=== PATIENT | male | born 1980 | race African-American/Black ===

== ENCOUNTER 2020-03-02 02:46 | Emergency (ER) | payer SELFPAY ==
[~2020-03-02] VITALS: Ht 180.3 cm; Wt 106.6 kg
[2020-03-02 02:50] VITALS: BP_SYST 151
--- NOTE | 2020-03-02 02:50 | NUR ---
Patient to ER bed 6 to gown for evaluation. Side rails up. Report given to ASHU.
--- NOTE | 2020-03-02 02:55 | NUR ---
PT AAO AND AMBULATORY C/O WORSENING MIGRAINE HEADACHE SINCE YESTERDAY. PT HAS ATTEMPTED TO TREAT HIS HEADACHE WITH HOME MEASURES AND HAS BEEN UNSUCCESSFUL WITH OTC MEDICATION. PT REPORTS SENSITIVITY TO LIGHT AND 10/10 PAIN SCALE.
--- NOTE | 2020-03-02 03:10 | NUR ---
ER DR. QUILES AT THE BEDSIDE EVALUATING PT
[2020-03-02] MEDS ORDERED: NACL 0.9% 1,000 ML IV ONE (03:23)
[2020-03-02] MEDS ORDERED: DIPHENHYDRAMINE INJ 50 MG/ML VIAL IVP ONE (03:30)
[2020-03-02] MEDS ORDERED: METOCLOPRAMIDE HCL 10 MG/2 ML VIAL IVP ONE (03:30)
[2020-03-02] MEDS ORDERED: KETOROLAC TROMETHAMINE 30 MG VIAL IVP ONE (03:30)
--- NOTE | 2020-03-02 03:30 | NUR ---
# 18 gauge angiocath placed to LAC. Use of asceptic technique. Opsite placed over site. Blood return noted. Blood for lab drawn from site. Flushed with 10 cc of normal saline. No evidence of infiltration noted. Patient tolerated well.
[2020-03-02 03:51] LABS: BASOPHILS # (AUTO) 0.1 K/uL (0.0-0.2); BASOPHILS % (AUTO) 1.4 % (0.0-2.0); EOSINOPHILS # (AUTO) 0.1 K/uL (0.0-0.4); EOSINOPHILS % (AUTO) 1.6 % (0.0-4.0); HEMATOCRIT 41.7 % (36-54); LYMPHOCYTES # (AUTO) 1.4 K/uL (1.0-5.5); LYMPHOCYTES % (AUTO) 17.6 % (20.5-51.5); MEAN CORPUSCULAR HEMOGLOBIN 28 pg (27-31); MEAN CORPUSCULAR HGB CONC 34 % (32-36); MEAN CORPUSCULAR VOLUME 83 fL (79.0-98.0); MONOCYTES # (AUTO) 0.3 K/uL (0.0-1.0); MONOCYTES % (AUTO) 4.5 % (1.7-9.3); NEUTROPHILS # (AUTO) 5.7 K/uL (1.8-7.7); NEUTROPHILS % (AUTO) 74.9 % (40.0-70.0); PLATELET COUNT (AUTO) 288 K/uL (130-430); RED BLOOD CELL COUNT(AUTO) 5.02 MIL/uL (4.2-6.2); RED CELL DISTRIBUTION WIDTH 13.1 % (9.0-15.0); WHITE BLOOD COUNT (AUTO) 7.7 K/uL (4.8-10.8)
[2020-03-02 03:59] LABS: CALCIUM 8.6 mg/dL (8.4-11.0); CREATININE 1.01 mg/dL (0.55-1.30); POTASSIUM 3.6 mmol/L (3.5-5.1)
[2020-03-02] MEDS ORDERED: fentaNYL CITRATE/PF 100 MCG/2 ML AMP IVP ONE (04:00)
[2020-03-02 04:03] LABS: ALBUMIN 3.8 g/dL (3.4-4.8); PROTHROMBIN TIME 10.4 SECS (9.5-12.5); TOTAL BILIRUBIN 0.3 mg/dL (0.0-1.0)
--- NOTE | 2020-03-02 04:15 | NUR ---
Patient transported to radiology via AMBULATION, accompanied by STAFF.
[2020-03-02 05:15] VITALS: BP_SYST 151
--- NOTE | 2020-03-02 05:18 | NUR ---
Patient given written and verbal discharge instructions and verbalizes understanding. ER MD discussed with patient the results and treatment provided. Patient in stable condition. ID arm band removed. IV catheter removed intact and dressing applied, no active bleeding. Rx of FIORICET given. Patient educated on pain management and to follow up with PMD. Pain Scale 0/10. Opportunity for questions provided and answered. Medication side effect fact sheet provided.
== END 2020-03-02 05:15 | disposition home or self-care (01) ==
LOC: SED 02:46
DX: R51.9 Headache, unspecified (principal)
CPT/HCPCS: 36415; 70450; 80053; 85025; 85610; 85730; 96374; 96375; 99284; J1200; J1885; J2765; J3010; J7030

== ENCOUNTER 2022-08-25 09:25 | Emergency (ER) | payer SELFPAY ==
[~2022-08-25] VITALS: Ht 177.8 cm; Wt 117.9 kg
[2022-08-25 09:30] VITALS: BP_SYST 155
--- NOTE | 2022-08-25 09:41 | NUR ---
PT BIB SELF FROM HOME WITH C/O FEVERS AND CHILLS X1 WK. PT STATES HE HAD BLOOD IN HIS URINE LAST NIGHT AND HAS PAIN WHEN URINATING. PT STATES HIS PAIN IS 10/10 IN THE LLQ. HX - N/A. 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 SAFETY PRECAUTIONS AND COMFORT MEASURES IN PLACE. PENDING MD BOYKIN AND ORDERS.
--- NOTE | 2022-08-25 09:44 | NUR ---
DR. CODY AT BEDSIDE EXAMINING THE PT.
--- NOTE | 2022-08-25 09:46 | NUR ---
URINE SENT TO LAB.
[2022-08-25] MEDS ORDERED: KETOROLAC TROMETHAMINE 60 MG/2 ML VIAL IM ONE (10:00)
[2022-08-25 10:05] LABS: ANION GAP 8 (5-15); CALCIUM 8.8 mg/dL (8.4-11.0); CHLORIDE 102 mmol/L (98-107); CREATININE 1.32 mg/dL (0.55-1.30); GFR AFRICAN AMERICAN 76 mL/min (>90); GLUCOSE 102 mg/dL (70-99); UREA NITROGEN, BLOOD 11 mg/dL (8-21)
[2022-08-25 10:06] LABS: BASOPHILS # (AUTO) 0.1 K/uL (0.0-0.2); BASOPHILS % (AUTO) 0.9 % (0.0-2.0); EOSINOPHILS # (AUTO) 0.1 K/uL (0.0-0.4); EOSINOPHILS % (AUTO) 1.8 % (0.0-4.0); HEMATOCRIT 46.7 % (36-54); HEMOGLOBIN 15.1 g/dL (14.0-18.0); LYMPHOCYTES # (AUTO) 1.8 K/uL (1.0-5.5); LYMPHOCYTES % (AUTO) 22.4 % (20.5-51.5); MEAN CORPUSCULAR HEMOGLOBIN 27 pg (27-31); MEAN CORPUSCULAR HGB CONC 32 % (32-36); MEAN CORPUSCULAR VOLUME 84 fL (79.0-98.0); MONOCYTES # (AUTO) 0.5 K/uL (0.0-1.0); MONOCYTES % (AUTO) 5.6 % (1.7-9.3); NEUTROPHILS # (AUTO) 5.6 K/uL (1.8-7.7); NEUTROPHILS % (AUTO) 69.3 % (40.0-70.0); PLATELET COUNT (AUTO) 309 K/uL (130-430); RED BLOOD CELL COUNT(AUTO) 5.59 MIL/uL (4.2-6.2); RED CELL DISTRIBUTION WIDTH 13.3 % (9.0-15.0); WHITE BLOOD COUNT (AUTO) 8.1 K/uL (4.8-10.8)
[2022-08-25 10:10] LABS: ALANINE AMINOTRANSFERASE 34 U/L (12-78); ALBUMIN 4.1 g/dL (3.4-4.8); AMYLASE 78 U/L (0-100); ASPARTATE AMINOTRANSFERASE 19 U/L (10-37); C-REACTIVE PROTEIN QUANT < 0.2 mg/dL (0-0.5); LIPASE 96 U/L (73-393); TOTAL BILIRUBIN 0.6 mg/dL (0.0-1.0)
[2022-08-25 10:11] LABS: PROTHROMBIN TIME 10.4 SECS (9.5-12.5)
[2022-08-25 10:57] LABS: BILIRUBIN,URINE NEGATIVE (NEGATIVE); BLOOD, URINE 2+ (NEGATIVE); COLOR,URINE YELLOW (YELLOW); GLUCOSE,URINE NEGATIVE (NEGATIVE); KETONES,URINE NEGATIVE (NEGATIVE); LEUKOCYTE ESTERASE ,URINE NEGATIVE (NEGATIVE); NITRITE, URINE NEGATIVE (NEGATIVE); PH,URINE 7.5 (5.0-8.0); PROTEIN URINE NEGATIVE (NEGATIVE)
[2022-08-25 11:00] LABS: CLARITY/URINE CLOUDY (CLEAR)
[2022-08-25 11:24] LABS: BACTERIA,URINE None Seen /HPF (None Seen); WBC,URINE 0-3 /HPF (0-3)
[2022-08-25] MEDS ORDERED: TRAM50TA2 PO (11:24)
[2022-08-25] MEDS ORDERED: IBUP-1971 PO (11:24)
--- NOTE | 2022-08-25 11:26 | NUR ---
PT MEDICALLY CLEARED FOR DISCHARGE. D/C INSTRUCTIONS GIVEN TO PT. PT TO FOLLOW-UP WITH PCP WITHIN 1-3 DAYS AND TO RETURN TO ED FOR WORSENING S/S. PT VERBALZIED UNDERSTANDING. PT AAX04, NAD, WRISTBAND REMOVED. PT AMBULATORY WITH STEADY GAIT. PT LEFT ED WITH ALL BELONGINGS.
[2022-08-25 11:27] VITALS: BP_SYST 141
== END 2022-08-25 11:26 | disposition home or self-care (01) ==
LOC: SED 09:25
DX: R31.9 Hematuria, unspecified (principal); R10.32 Left lower quadrant pain; R50.9 Fever, unspecified; Z79.899 Other long term (current) drug therapy
CPT/HCPCS: 99285; 74176; 80053; 81000; 82150; 83690; 85025; 85610; 85730; 86140; 36415; 76376; 96372; J1885